=== PATIENT | male | born 1965 | race Caucasian/White ===

== ENCOUNTER 2017-02-16 16:51 | Emergency (ER) | payer SELFPAY ==
[~2017-02-16] VITALS: Ht 185.4 cm; Wt 85.7 kg
[2017-02-16] MEDS ORDERED: HYDROCODONE/APAP 5-325MG TABLET PO ONE (17:00)
[2017-02-16] MEDS ORDERED: HYDROCODONE/APAP 5-325MG TABLET ONE (17:14)
--- NOTE | 2017-02-16 17:22 | NUR ---
Patient discharged to home in stable conditon. Written and verbal after care instructions given. Patient verbalizes understanding of instructions.pt kid will come [employer] the pt.
[2017-02-16 17:23] VITALS: BP 131/96
== END 2017-02-16 17:23 | disposition home or self-care (01) ==
LOC: ER 16:52
DX: Z04.1 Encounter for examination and observation following transport accident (principal); F10.20 Alcohol dependence, uncomplicated; F17.200 Nicotine dependence, unspecified, uncomplicated
CPT/HCPCS: 99283; A4663

== ENCOUNTER 2017-03-21 16:20 | Emergency (ER) | payer MEDICAID ==
[~2017-03-21] VITALS: Ht 185.4 cm; Wt 86.2 kg
--- NOTE | 2017-03-21 17:53 | NUR ---
1751-Patient discharged to home in stable conditon. Written and verbal after care instructions given to patient. Patient verbalizes understanding of instructions. Copies of all tests results were provided per patient's request. CD copy was given per patient's request.
== END 2017-03-21 17:55 | disposition home or self-care (01) ==
LOC: ER 16:20
DX: S16.1XXA Strain of muscle, fascia and tendon at neck level, initial encounter (principal); F10.20 Alcohol dependence, uncomplicated; F17.200 Nicotine dependence, unspecified, uncomplicated; Z88.2 Allergy status to sulfonamides; Z85.828 Personal history of other malignant neoplasm of skin; V49.49XA Driver injured in collision with other motor vehicles in traffic accident, initial encounter; Y93.89 Activity, other specified; Y99.8 Other external cause status; Y92.89 Other specified places as the place of occurrence of the external cause
CPT/HCPCS: 72100; A4663

== ENCOUNTER 2022-03-17 11:51 | Emergency (ER) | payer MEDICAID, OTHER ==
[~2022-03-17] VITALS: Ht 185.4 cm; Wt 90.7 kg
[2022-03-17] MEDS ORDERED: IBUP-1953 PO (12:10)
[2022-03-17] MEDS ORDERED: OXYC-133 PO (12:10)
[2022-03-17] MEDS ORDERED: HYDR-4209 PO (12:30)
--- NOTE | 2022-03-17 12:58 | NUR ---
PT WAS EVALUATED BY DR LORENZO. PT WAS D/C'd TO HOME D/C INSTRUCTIONS GIVEN TO THE PT BY DR LORENZO.
[2022-03-17 12:59] VITALS: BP 139/81
== END 2022-03-17 12:59 | disposition home or self-care (01) ==
LOC: ER 11:52
DX: M54.50 Low back pain, unspecified (principal); G89.29 Other chronic pain; Z82.49 Family history of ischemic heart disease and other diseases of the circulatory system; F17.210 Nicotine dependence, cigarettes, uncomplicated; Z88.2 Allergy status to sulfonamides; Z85.828 Personal history of other malignant neoplasm of skin; R26.2 Difficulty in walking, not elsewhere classified
CPT/HCPCS: A4663

== ENCOUNTER 2022-06-03 11:00 | Emergency (ER) | payer OTHER ==
[~2022-06-03] VITALS: Ht 185.4 cm; Wt 93.0 kg
[~2022-06-03 11:00] MED LIST: HYDR-4209 PO; IBUP-1953 PO; OXYC-133 PO
--- NOTE | 2022-06-03 11:45 | NUR ---
Patient walked in to ED c/o lateral left foot pain, redness noted at the affected area. NAD. Able to ambulate with steady gait.
--- NOTE | 2022-06-03 12:07 | NUR ---
MSE in progress.
[2022-06-03] MEDS ORDERED: HYDROCODONE/APAP 5-325MG TABLET PO ONE (12:15)
[2022-06-03] MEDS ORDERED: HYDROMORPHONE 1 MG/1 ML DISP.SYRIN IM ONE ×2 (12:15→13:45)
[2022-06-03] MEDS ORDERED: IBUPROFEN 400 MG TABLET PO ONE (12:15)
--- NOTE | 2022-06-03 12:15 | NUR ---
xray done at bedside c/o tech.
[2022-06-03] MEDS ORDERED: IBUPROFEN 400 MG TABLET ONE (12:16)
[2022-06-03] MEDS ORDERED: HYDROCODONE/APAP 5-325MG TABLET ONE (12:16)
[2022-06-03] MEDS ORDERED: HYDROMORPHONE 1 MG/1 ML DISP.SYRIN ONE ×2 (12:34→13:35)
--- NOTE | 2022-06-03 12:37 | NUR ---
Dilaudid 1mg L deltoid IM given.
--- NOTE | 2022-06-03 12:37 | NUR ---
1215 po motrin 1 tab 400mg and norco 5-325mg 1 tab administered to patient.
--- NOTE | 2022-06-03 13:36 | NUR ---
Dilaudid 1mg R deltoid IM given.
[2022-06-03] MEDS ORDERED: PRED50TA PO (14:35)
[2022-06-03] MEDS ORDERED: OXYC1TAB12 PO (14:35)
[2022-06-03] MEDS ORDERED: NAPR-1009 PO (14:36)
--- NOTE | 2022-06-03 14:40 | NUR ---
Patient discharged to home in stable condition. Written and verbal after care instructions given. Patient verbalizes understanding of instructions. Stressed follow up or return to ER for worsening s/s.
[2022-06-03 14:44] VITALS: BP 126/81
== END 2022-06-03 14:45 | disposition home or self-care (01) ==
LOC: ER 11:00
DX: M79.672 Pain in left foot (principal); E11.9 Type 2 diabetes mellitus without complications; Z85.828 Personal history of other malignant neoplasm of skin; Z88.2 Allergy status to sulfonamides
CPT/HCPCS: 99284; 73630; 96372 ×2; J1170 ×2; A4663